=== PATIENT | female | born 1980 | race Caucasian/White ===

== ENCOUNTER → 2023-09-10 12:22 | Outpatient (REF) | payer MEDICARE, OTHER, SELFPAY ==
[2023-09-11 15:40] LABS: HIV Combo Negative (Negative)
== END ==
LOC: REG 12:22
PROVIDERS: ATTENDING PHYSICIAN Otolaryngology
DX: J35.2 Hypertrophy of adenoids (principal)
CPT/HCPCS: 36415; 87389